=== PATIENT | female | born 1990 | race Two or more races ===

== ENCOUNTER 2016-08-04 17:30 | Emergency (ER) | payer SELFPAY ==
--- NOTE | ~2016-08-04 | US106 ---
[facility] A Service of [facility] & [facility] RADIOLOGY TEXT RESULTS PATIENT: DAYAMI WOOD LOCATION: CFTX : 90 UNIT #: [id number] AGE: [address]: Jluiet Egan SEX: F ORDER DR: [id number] [facility] [address] [place], [place] [address] [id number] MR#: [id number] Acc #: [id number] NAME: DAYAMI WOOD : 1990 SEX: F STUDY DATE/TIME: 08/04/2016 18:07 UNIT: [facility] ROOM: STUDY DESCRIPTION: US Preg Uterus Transvaginal Attending Physician: Juliet Egan P.A.-C. Ordering Physician: Juliet Egan P.A.-C. Primary Care Physician: No Primary Care Physician MEDICAL IMAGING REPORT This report is preliminary unless electronic signature is present EXAM Pelvic sonogram HISTORY A 25-year-old female, positive test with beta hCG of 101,000. Pelvic pain x1 week. FINDINGS Real-time examination confirms a early single intrauterine with a normal-appearing gestational sac, a small pole and yolk sac. heart motion detected 125 beats per minute. Both ovaries visualized unremarkable. [place]-rump length measurement corresponds to about 7-week gestation. Possible hemorrhagic cyst left ovary measuring about 2.2 cm. No free fluid identified. In the anterior pelvis just anterior the cervix, there is a 2 x 1.6 x 1.4 cm cystic collection near the site of patient's scar that could represent a chronic seroma. IMPRESSION 1. A single early intrauterine with an average gestational age by ultrasound of 7 weeks 1 day. This corresponds to an EDC of March 22, 2017. This roughly corresponds to the patient's EDC by LMP. Normal heart rate. 2. Small corpus luteum cyst or hemorrhagic cyst left ovary measuring about 2.2 cm. 3. A 2 cm cystic collection anterior to the cervix lower uterine segment corresponding to the site of patient's scar could represent a chronic seroma. Dictated by.Irwin Bai M.D. [facility] A Service of [facility] & [facility] RADIOLOGY TEXT RESULTS PATIENT: DAYAMI WOOD LOCATION: CFTX : 90 UNIT #: [id number] AGE: [address]: Juliet Egan SEX: F ORDER DR: THIS IS AN ELECTRONICALLY VERIFIED REPORT Kaylan Bai M.D. at 08/04/2016 10:39 PM Gael TD: 08/04/2016 22:01 JOB #: [id number] MEDICAL IMAGING REPORT Page 1 of 1 COPY
[2016-08-04 17:17] LABS: URINE SOURCE CLEAN CATCH
[~2016-08-04 17:30] MED LIST: NO MEDICATIONS
[2016-08-04 17:33] LABS: URINE APPEARANCE CLEAR; URINE BILIRUBIN NEG (NEG); URINE BLOOD 1+ (NEG); URINE COLOR YELLOW; URINE GLUCOSE NEG (NEG); URINE KETONE TRACE (NEG); URINE LEUKOCYTE ESTERASE 1+ (NEG); URINE NITRATE NEG (NEG); URINE PH 6.5 (5-8); URINE PROTEIN NEG (NEG); URINE SPECIFIC GRAVITY 1.023 (1.003-1.035)
[2016-08-04 17:37] LABS: CULTURE INDICATED? YES; URINE BACTERIA AUWI 2+ (NEGATIVE); URINE SQUAMOUS EPITHELIAL CELL FEW /[HPF]
[2016-08-04 18:04] LABS: BASOPHIL# 0.1 X10e3 (0-0.3); BASOPHIL% 0.7 % (0-2.5); EOSINOPHIL# 0.2 X10e3 (0-0.7); EOSINOPHIL% 1.3 % (0.0-7.0); HEMATOCRIT 40.9 % (35.0-45.0); HEMOGLOBIN 13.8 gm/dL (12.0-16.0); LYMPHOCYTE# 2.4 X10e3 (1.0-3.5); LYMPHOCYTE% 18.3 % (17.0-45.0); MEAN CELL VOLUME 85.1 FL (83-96); MEAN CORPUSCULAR HEMOGLOBIN 28.6 PG (28-34); MEAN CORPUSCULAR HGB CONC 33.6 g/dL (30-36); MEAN PLATELET VOLUME 8.9 FL (6.5-11.5); MONOCYTE# 0.8 X10e3 (0-1.0); MONOCYTE% 5.7 % (3.0-12.0); NEUTROPHIL# 9.9 X10e3 (1.5-7.1); RED BLOOD COUNT 4.81 X10e (3.90-5.30); RED CELL DISTRIBUTION WIDTH 12.8 % (11.0-15.5); WHITE BLOOD COUNT 13.3 X10e3 (4.0-10.5)
[2016-08-04 18:15] LABS: ALBUMIN SERUM 4.8 g/dL (3.5-5.0); BILIRUBIN, DIRECT 0.1 mg/dL (0.0-0.2); BILIRUBIN,INDIRECT 0.3 mg/dL (0.0-0.9); BILIRUBIN,TOTAL 0.4 mg/dL (0.2-2.0); BUN/CREATININE RATIO 22.5; CALCIUM SERUM 9.5 mg/dL (8.4-10.2); CREATININE SERUM 0.4 mg/dL (0.6-1.4); GLOM FILT RATE Estimated 144.8 mL/min (>60); POTASSIUM 4.2 mmol/L (3.5-5.1); PROTEIN TOTAL SERUM 7.9 g/dL (6.0-8.3)
[2016-08-04 18:16] LABS: DIFF IND NO; PLATELET COUNT 329 X10e3 (140-420)
== END 2016-08-04 19:03 | disposition home or self-care (01) ==
LOC: CED 17:30
PROVIDERS: Physician Assistant
DX: N30.00 Acute cystitis without hematuria (principal); K75.9 Inflammatory liver disease, unspecified; Z88.0 Allergy status to penicillin
CPT/HCPCS: 36415; 76817; 80048; 80076; 81003; 83690; 84702; 84703; 85025; 87086; 87088; 87186; 99284